=== PATIENT | male | born 1945 ===

== ENCOUNTER 2018-12-26 09:26 | Emergency (ER) | payer MEDICARE, OTHER ==
[2018-12-26 09:27] VITALS: BMI 22.6
[2018-12-26 09:45] VITALS: RESP 18
[2018-12-26] MEDS ORDERED: Lidocaine 5% Patch TD STA (10:14)
[2018-12-26] MEDS ORDERED: Lidocaine 5% Patch TD ONE (10:20)
--- NOTE | 2018-12-26 10:32 | ED PDOC ---
Upper Extremity Pain/Injury Time Seen by Provider: 12/26/18 09:46 Chief Complaint (Nursing): Upper Extremity Problem/Injury Chief Complaint (Provider): Upper Extremity Problem/Injury History Per: Patient History/Exam Limitations: no limitations Onset/Duration Of Symptoms: Days Current Symptoms Are (Timing): Still Present Additional Complaint(s): 73 year old male with a past medical history of HTN presents to the ED for evaluation of right shoulder pain, beginning 6 months ago. He states that the pain is made worse with movement. Patient has seen Dr. Goel for this complaint and states that he has been prescribed multiple medications for pain with no relief. Patient denied numbness, tingling, chest pain, shortness of breath, or weakness. He denies trauma or heavy lifting recently. PMD: Andrez Goel. Past Medical History Reviewed: Historical Data, Nursing Documentation, Vital Signs Vital Signs: Last Vital Signs Temp 98.5 F 12/26/18 09:43 Pulse 66 12/26/18 09:43 Resp 18 12/26/18 09:43 BP 100/70 12/26/18 09:43 Pulse Ox 97 12/26/18 09:43 SHIRA Report Viewed: Yes Primary Care Provider: Andrez Goel - Medical History PMH: HTN Denies: Alzheimer's Disease, Anemia, Anxiety, Arthritis, Asthma, Atrial Fibrillation, Bipolar Disorder, Bronchitis, CAD, Cardia Arrhythmia, CHF, COPD, Crohn's Disease, Dementia, Depression, Diverticulitis, Emphysema, Fractures, Gastritis, Gall Bladder Disease, HIV, Hypercholesterolemia, Hyperthyroidism, Hypothyroidism, Kidney Stones, Migraine, Mitral Valve Prolapse, Multiple Sclerosis, Osteoporosis, Pancreatitis, Paranoia, Parkinson's Disease, Peripheral Edema, Pneumonia, Post Traumatic Stress Disorder, Pulmonary Embolism, Chronic Kidney Disease, Rheumatoid Arthritis, Schizophrenia, Seizures, Sickle Cell Di sease, Sexually Transmitted Disease, Sleep Apnea, TIA - Surgical History Surgical History: Appendectomy Denies: CABG, Carotid Endarterectomy, Cholecystectomy, Coronary Stent, Pacemaker, Tonsillectomy - Family History Family History: States: Unknown Family Hx - Home Medications Home Medications: Ambulatory Orders Medication Instructions Recorded Atorvastatin [Lipitor] 20 mg PO HS 12/13/15 Aspirin [Aspirin Chewable] 81 mg PO DAILY #0 ctb 12/14/15 Valsartan [Diovan] 320 mg PO DAILY #0 tab 12/14/15 amLODIPine [Norvasc] 10 mg PO DAILY #0 tab 12/14/15 Ibuprofen [Motrin] 600 mg PO TID 7 Days tab 12/26/18 Lidocaine 5% [Lidoderm] 1 ea TD DAILY PRN #5 patch 12/26/18 - Allergies Allergies/Adverse Reactions: Allergies Allergy/AdvReac Type Severity Reaction Status Date / Time No Known Allergies Allergy Verified 03/30/17 08:55 Review of Systems ROS Statement: Except As Marked, All Systems Reviewed And Found Negative Cardiovascular: Negative for: Chest Pain Respiratory: Negative for: Shortness of Breath Musculoskeletal: Positive for: Shoulder Pain (right) Neurological: Negative for: Weakness, Numbness Physical Exam - Reviewed Nursing Documentation Reviewed: Yes Vital Signs Reviewed: Yes - Physical Exam Appears: Positive for: Well, No Acute Distress Neck: Positive for: Normal, Painless ROM, Supple Cardiovascular/Chest: Positive for: Regular Rate, Rhythm, Chest Non Tender. Negative for: Edema, Tachycardia Respiratory: Positive for: Normal Breath Sounds. Negative for: Accessory Muscle Use Pulses-Radial (R): 2+ Back: Positive for: Normal Inspection. Negative for: L CVA Tenderness, R CVA Tenderness Extremity: Positive for: Normal ROM, Tenderness (mild to the right anterior shoulder), Other (no erythema, no weakness). Negative for: Deformity, Swelling - ECG O2 Sat by Pulse Oximetry: 97 (RA) Pulse Ox Interpretation: Normal - Radiology X-Ray: Read By Radiologist X-Ray Interpretation: No Acute Disease - Progress ED Course And Treament: 1115: Stable. AAOx3. Pain on going for [address] Goel. Pain controlled. Medical Decision Making Medical Decision Making: Time: 101 Impression: Right Shoulder Pain Plan: --Lidocaine 5% 1 ea TD --Ibuprofen 600 mg PO --XR Right Shoulder Scribe Attestation: Documented by Simeon Stoddard, acting as a scribalyssa Estrada MD. Provider Scribe Attestation: All medical record entries made by the Scribe were at my direction and personally dictated by me. I have reviewed the chart and agree that the record accurately reflects my personal performance of the history, physical exam, medical decision making, and the department course for this patient. I have also personally directed, reviewed, and agree with the discharge instructions and disposition. Disposition - Clinical Impression Clinical Impression: Shoulder pain - Patient ED Disposition Is Patient to be Admitted: No Counseled Patient/Family Regarding: Studies Performed, Diagnosis, Need For Followup, Rx Given - Disposition Referrals: Andrez Goel MD [Family Provider] - 12/30/18 Disposition: Routine/Home Disposition Time: 10:00 Condition: STABLE Additional Instructions: Return if not better in 3 days. Prescriptions: Ibuprofen [Motrin] 600 mg PO TID 7 Days tab Lidocaine 5% [Lidoderm] 1 ea TD DAILY PRN #5 patch PRN Reason: Pain, Moderate (4-7) Instructions: Shoulder Pain (DC) Forms: [employer] (Portuguese)
--- NOTE | 2018-12-26 10:56 | RAD ---
Date of service: 12/26/2018 PROCEDURE: Radiographs of the Right Shoulder HISTORY: shoulder pain COMPARISON: No prior. TECHNIQUE: 3 views obtained. FINDINGS: BONES: Normal. No fracture. JOINTS: Normal. Glenohumeral and acromioclavicular joints preserved. No osteoarthritis. SOFT TISSUES: Normal. OTHER FINDINGS: None. IMPRESSION: Normal radiographs of the right shoulder.
[2018-12-26 11:32] VITALS: BP 168/70; PULSE 67; TEMP 98.2; O2SAT 99
== END 2018-12-26 11:32 | disposition home or self-care (01) ==
LOC: H.ER 09:26
DX: M25.511 Pain in right shoulder (principal); I10 Essential (primary) hypertension; Z79.82 Long term (current) use of aspirin